=== PATIENT | female | born 1980 | race African-American/Black ===

== ENCOUNTER 2016-11-20 13:06 | Emergency (ER) | payer OTHER ==
--- NOTE | ~2016-11-20 | CR63 ---
[facility]. [facility] A Service of [facility] RADIOLOGY TEXT RESULTS PATIENT: BERNABE RAZO LOCATION: SED : 82 UNIT #: [id number] AGE: [address]: Dona Guerrero APRN SEX: F ORDER DR: [id number] [place] [id number] E MR#: [id number] #: [id number] NAME: BERNABE RAZO : 1980 SEX: F STUDY DATE/TIME: 11/20/2016 12:47 UNIT: SED ROOM: STUDY DESCRIPTION: CR Chest 2 View Attending Physician: Dona Guerrero A.P.R.N. Ordering Physician: Dona Guerrero A.P.R.N. Primary Care Physician: No Primary Care Physician MEDICAL IMAGING REPORT This report is preliminary unless electronic signature is present. EXAM PA and lateral chest. INDICATION 36-year-old female with cough, congestion, sore throat for 3 days. COMPARISON 11/07/2004 FINDINGS The lungs are well expanded and clear. Heart size upper normal. Visualized osseous structures unremarkable. Upper abdominal surgical clips. IMPRESSION No active disease. Dictated by... Mark Calvin M.D. THIS IS AN ELECTRONICALLY VERIFIED REPORT Mark Calvin M.D. at 11/20/2016 4:39 PM ISABEL/amy TD: 11/20/2016 15:54 JOB #: [id number] MEDICAL IMAGING REPORT
--- NOTE | ~2016-11-20 | EKG ---
PATIENT: BERNABE ARZO UNIT #: [id number] Ventricular Rate: 83 BPM Atrial Rate: 83 BPM P-R Interval: 148 ms QRS Duration: 88 ms Q-T Interval: 378 ms QTC Calculation(Bezet): 444 ms P Pike: 55 degrees Calculated R Pike: 62 degrees Calculated T Pike: 60 degrees Diagnosis Line: Normal sinus rhythm Diagnosis Line: Normal ECG Diagnosis Line: No previous ECGs available Diagnosis Line: Confirmed by RONALD MAGALLON MD ([id number]) on 11/20/2016 Diagnosis Line: 5:38:01 PM INTERPRETING MD: NAUN GARCIA
[2016-11-20 12:57] LABS: INFLUENZA A NEG (NEG); INFLUENZA B NEG (NEG)
[2016-11-20 13:00] LABS: POC - CKMB 2.7 ng/mL (0.0-7.9); POC - MYOGLOBIN 69.1 ng/mL (0.0-169.0); POC - TROPONIN <0.05 ng/mL (<=0.05)
[2016-11-20 13:02] LABS: BASOPHIL# 0.2 X10e3 (0-0.3); BASOPHIL% 1.8 % (0-2.5); EOSINOPHIL# 0.1 X10e3 (0-0.7); EOSINOPHIL% 0.7 % (0.0-7.0); HEMATOCRIT 39.7 % (35.0-45.0); HEMOGLOBIN 12.8 gm/dL (12.0-16.0); LYMPHOCYTE# 3.3 X10e3 (1.0-3.5); LYMPHOCYTE% 30.5 % (17.0-45.0); MEAN CELL VOLUME 81.3 FL (83-96); MEAN CORPUSCULAR HEMOGLOBIN 26.2 PG (28-34); MEAN CORPUSCULAR HGB CONC 32.3 g/dL (30-36); MEAN PLATELET VOLUME 7.9 FL (6.5-11.5); MONOCYTE# 0.9 X10e3 (0-1.0); MONOCYTE% 8.3 % (3.0-12.0); NEUTROPHIL# 6.3 X10e3 (1.5-7.1); NEUTROPHIL% 58.7 % (40-75); PLATELET COUNT 291 X10e3 (140-420); RED BLOOD COUNT 4.88 X10e (3.90-5.30); RED CELL DISTRIBUTION WIDTH 13.8 % (11.0-15.5); WHITE BLOOD COUNT 10.8 X10e3 (4.0-10.5)
[~2016-11-20 13:06] MED LIST: NO MEDICATIONS
[2016-11-20 13:10] LABS: BLOOD UREA NITROGEN 18 mg/dL (9-23); BUN/CREATININE RATIO 25.71; CALCIUM SERUM 9.1 mg/dL (8.4-10.2); CARBON DIOXIDE 25 mmol/L (22-31); CHLORIDE 108 mmol/L (100-111); CREATININE SERUM 0.7 mg/dL (0.6-1.4); GLOM FILT RATE Estimated ABOVE60 mL/min (>60); GLUCOSE FASTING 116 mg/dL (70-110); POTASSIUM 3.6 mmol/L (3.5-5.1); SODIUM 141 mmol/L (135-145)
[2016-11-20 13:24] LABS: DIFF IND NO
== END 2016-11-20 14:20 | disposition home or self-care (01) ==
LOC: SED 13:06
PROVIDERS: Nurse Practitioner
DX: J20.9 Acute bronchitis, unspecified (principal); J11.1 Influenza due to unidentified influenza virus with other respiratory manifestations; F17.210 Nicotine dependence, cigarettes, uncomplicated; Z90.710 Acquired absence of both cervix and uterus; Z90.49 Acquired absence of other specified parts of digestive tract
CPT/HCPCS: 36415; 71020; 80048; 82553; 83874; 84484; 85025; 87651; 87804; 93005; 94640; 99283